=== PATIENT | female | born 1995 | race Hispanic/Latino ===

== ENCOUNTER 2025-09-18 14:56 | Emergency (ER) | payer SELFPAY ==
[2025-09-18 15:49] LABS: #Basophils 0.07 10x3/uL (0.0-0.2); #Eosinophils 0.18 10x3/uL (0.0-0.7); #Monocytes 0.42 10x3/uL (0.11-0.59); #Neutrophils 4.11 10x3/uL (1.40-6.50); %Basophils 1.0 % (0.0-1.0); %Eosinophils 2.6 % (0.0-10.0); %Lymphocytes 29.7 % (21.0-51.0); %Monocytes 6.1 % (0.0-10.0); %Neutrophils 60.3 % (42.0-75.0); Hematocrit 34.4 % (36.0-47.0); Hemoglobin 11.0 g/dL (12.0-16.0); Mean Corpuscular Hemoglobin 27.9 pg (27.0-31.0); Mean Corpuscular Volume 87.3 fL (78.0-98.0); Platelet Count 272 10x3/uL (130-400); Red Blood Cell (RBC) Count 3.94 mill/uL (4.20-5.40); White Blood Cell (WBC) Count 6.83 10x3/uL (4.8-10.8)
[2025-09-18 16:30] LABS: ALT (SGPT) 9 U/L (Less than 34); AST (SGOT) 31 U/L (11-34); Albumin 3.9 g/dL (3.1-4.5); Alkaline Phosphatase 55 U/L (40-110); Anion Gap 14 mmol/L (10-20); BUN (Urea Nitrogen) 14 mg/dL (7.0-18.7); Bilirubin, Total 0.5 mg/dL (0.3-1.2); Calc. Creatinine Clearance 0 mL/min (70-130); Calcium 8.8 mg/dL (7.8-10.44); Carbon Dioxide 24 mmol/L (22-29); Chloride 110 mmol/L (98-107); Globulin 3.0 g/dL (2.4-3.5); Glucose 75 mg/dL (70-105); Potassium 4.5 mmol/L (3.5-5.1); Sodium 143 mmol/L (136-145)
== END 2025-09-18 17:01 | disposition home or self-care (01) ==
LOC: ERS 14:56
DX: R55 Syncope and collapse (principal)
CPT/HCPCS: 80053; 85025; 93005; 99285